=== PATIENT | female | born 1980 | race African-American/Black ===

== ENCOUNTER 2019-06-10 09:41 | Emergency (ER) | payer OTHER ==
[2019-06-10 10:00] VITALS: BP 111/72; PULSE 68; TEMP 98.7; BMI 34.4
--- NOTE | 2019-06-10 10:55 | PDOC ---
History of Present Illness - General Chief Complaint: Pain, Acute Stated Complaint: RT ARM PAIN Time Seen by Provider: 06/10/19 10:30 History Source: Patient Exam Limitations: No Limitations - History of Present Illness Initial Comments: 06/10/19 10:53 Patient states had onset of right shoulder and upper arm pain for approximately 1 month and has been using the gym however has not changed her exercise or activity. 06/10/19 10:58 06/10/19 11:17 Occurred: reports: other (1 month) Severity: reports: mild, moderate Pain Location: reports: upper extremity (Right arm) Method of Injury: Yes: unknown Associated Symptoms (Fall): denies symptoms Past History - Travel Traveled outside of the country in the last 30 days: No Close contact w/someone who was outside of country & ill: No - Past Medical History Allergies/Adverse Reactions: Allergies Allergy/AdvReac Type Severity Reaction Status Date / Time SEAFOOD Allergy Uncoded 06/10/19 09:58 Home Medications: Ambulatory Orders Naproxen [Naprosyn -] 500 mg PO BID #30 tablet 06/10/19 - Psycho Social/Smoking Cessation Hx Smoking History: Never smoked Have you smoked in the past 12 months: No Information on smoking cessation initiated: No Hx Alcohol Use: No Drug/Substance Use Hx: No Review of Systems - Review of Systems Able to Perform ROS?: Yes Is the patient limited Martiniquais proficient: Yes Constitutional: Yes: Symptoms Reported, See HPI HEENTM: Yes: See HPI. No: Symptoms Reported Respiratory: Yes: See HPI. No: Symptoms reported, Cough Musculoskeletal: Yes: Symptoms Reported, See HPI, Joint Pain, Joint Swelling ( right shoulder ) All Other Systems: Reviewed and Negative *Physical Exam - Vital Signs Last Vital Signs Temp Pulse Resp BP Pulse Ox 98.7 F 68 18 111/72 100 06/10/19 09:55 06/10/19 09:55 06/10/19 09:55 06/10/19 09:55 06/10/19 09:55 - Physical Exam General Appearance: Yes: Nourished, Appropriately Dressed, Apparent Distress, Mild Distress HEENT: positive: SYLWIA, Normal ENT Inspection, TMs Normal, Pharynx Normal Neck: positive: Supple. negative: Tender Respiratory/Chest: positive: Normal Breath Sounds Extremity: positive: Normal Capillary Refill, Normal Inspection, Normal Range of Motion (but pain reproduced with abduction and forward flexion against resisitance , Strong grasp/ pushes and pulls but painj worsens with movement, ) Integumentary: positive: Normal Color, Dry, Warm Neurologic: positive: cyber security engineer II-XII NML intact, Fully Oriented, Alert, Normal Mood/ Affect ED Progress Note - Progress Note Progress Note: 06/10/19 13:49 muscle strain, will treat with NSAIDS and have F/U with Ortho Discharge - Discharge Information Problems reviewed: Yes Clinical Impression/Diagnosis: Muscle strain Condition: Stable Disposition: HOME - Admission No - Additional Discharge Information Prescriptions: Naproxen [Naprosyn -] 500 mg PO BID #30 tablet - Follow up/Referral Referrals: Salvatore Guallpa MD [Staff Physician] - - Patient Discharge Instructions Patient Printed Discharge Instructions: DI for Muscle Strain Additional Instructions: Rest, No lifting or exercise until pain gone. Ice to shoulder OR warm soaks.= whichever feels better Use Naprosyn - 1 tab every 12 hours for 3 days then as needed for pain Call PMD for physical therapy options or change in therapy Return for worsen pain . swelling or worsen problems - Post Discharge Activity
== END 2019-06-10 11:16 | disposition home or self-care (01) ==
LOC: JERFT 09:41
DX: S46.811A Strain of other muscles, fascia and tendons at shoulder and upper arm level, right arm, initial encounter (principal); X58.XXXA Exposure to other specified factors, initial encounter; Y93.89 Activity, other specified; Y92.89 Other specified places as the place of occurrence of the external cause; Y99.8 Other external cause status; Z91.013 Allergy to seafood
CPT/HCPCS: 99281-25